=== PATIENT | male | born 1960 | race Caucasian/White ===

== ENCOUNTER 2020-08-29 09:32 | Outpatient (CLI) | payer BC ==
[2020-08-29 12:15] LABS: Hemoglobin 15.1 g/dL (13.5-17.5); Mean Corpuscular HGB CONC 33.4 g/dL (32.0-36.0); Mean Corpuscular Hemoglobin 31.1 pg (27.0-33.0); Mean Corpuscular Volume 93.2 fl (81.2-95.1); Mean Platelet Volume 9.8 fl (7.4-10.4); Platelet Count 185 10x3/uL (150-450); RBC Distribution Width 13.8 % (11.5-14.5); Red Blood Cell (RBC) Count 4.85 10x6/uL (4.32-5.72); White Blood Cell (WBC) Count 8.9 10x3/uL (3.5-10.5)
[2020-08-29 12:41] LABS: Anion Gap 15 mmol/L (10-20); BUN (Urea Nitrogen) 17 mg/dL (8.4-25.7); Calc. Creatinine Clearance 0 mL/min (70-130); Calcium 9.7 mg/dL (7.8-10.44); Carbon Dioxide 27 mmol/L (23-31); Chloride 101 mmol/L (98-107); Glucose 133 mg/dL (80-115); Potassium 4.8 mmol/L (3.5-5.1); Sodium 138 mmol/L (136-145)
[2020-08-29 18:29] LABS: SARS-CoV-2 PCR by NAA Not Detected (NotDetected)
== END 2020-08-29 09:33 | disposition home or self-care (01) ==
LOC: CSHLAB 09:32
PROVIDERS: ATTEND Orthopaedic Surgery
DX: Z01.818 Encounter for other preprocedural examination (principal); Z20.822 Contact with and (suspected) exposure to COVID-19; S86.219A Strain of muscle(s) and tendon(s) of anterior muscle group at lower leg level, unspecified leg, initial encounter
CPT/HCPCS: 80048; 85027; 87635; 93005; 93010; U0003; U0005

== ENCOUNTER 2020-09-01 06:30 | Day surgery (SDC) | payer BC ==
[2020-08-31 14:24] VITALS: BMI 29.8
[2020-09-01] MEDS ORDERED: Lidocaine 1% MPF 2 ML VIAL ONE (08:03)
[2020-09-01] MEDS ORDERED: Bupivacaine PF 0.5% 30 ML VIAL ONE (08:09)
[2020-09-01] MEDS ORDERED: Neomycin-Polymyxin 1 ML AMP ONE (08:09)
[2020-09-01] MEDS ORDERED: EPINEPHrine 1 MG/ML AMP ONE (08:09)
[2020-09-01] MEDS ORDERED: Dexamethasone 4 mg/ml Vial ONE (08:22)
[2020-09-01] MEDS ORDERED: Lidocaine 1% PF 5 ML VIAL ONE (08:22)
[2020-09-01] MEDS ORDERED: Fentanyl 100 MCG/2 ML VIAL ONE (08:22)
[2020-09-01] MEDS ORDERED: PROPOFOL 20 ML ONE (08:22)
[2020-09-01] MEDS ORDERED: Ondansetron PF 4 MG/2 ML Vial ONE (08:22)
[2020-09-01] MEDS ORDERED: PHENYLEPHRINE-NS 100 MCG/ML 10 ML SYRINGE ONE (10:11)
[2020-09-01] MEDS ORDERED: ePHEDrine 50 MG/ML VIAL ONE (10:11)
== END 2020-09-01 12:35 | disposition home or self-care (01) ==
LOC: CSHSDC 06:30
PROVIDERS: ATTEND Orthopaedic Surgery
DX: S86.219A Strain of muscle(s) and tendon(s) of anterior muscle group at lower leg level, unspecified leg, initial encounter (principal)
CPT/HCPCS: C1713; J0171; J1100; J2405; J2704; J3010; J3490; S0020

== ENCOUNTER 2021-02-13 09:39 | Emergency (ER) | payer BC ==
[2021-02-13 10:41] LABS: Bilirubin Neg (Negative); Blood, Urine Negative (Negative); Clarity Clear (Clear); Glucose, Urine (Dipstick) Normal (Negative); Ketone, Urine Negative (Negative); Leukocyte Negative (Negative); Nitrite Negative (Negative); Protein, Urine (Dipstick) 15 mg/dl (Neg-Trace); Specific Gravity, Urine 1.005 (1.002-1.036); Urobilinogen Normal mg/dL (Less than 2)
[2021-02-13 10:43] LABS: %Basophils 0.6 % (0.0-2.0); %Eosinophils 1.9 % (0.0-6.0); %Lymphocytes 14.6 % (18.0-47.0); %Monocytes 4.8 % (0.0-10.0); %Neutrophils 77.7 % (40.0-75.0); Hemoglobin 14.2 g/dL (13.5-17.5); Mean Corpuscular HGB CONC 34.2 g/dL (32.0-36.0); Mean Corpuscular Hemoglobin 31.8 pg (27.0-33.0); Mean Corpuscular Volume 92.8 fl (81.2-95.1); Platelet Count 185 10x3/uL (150-450); RBC Distribution Width 14.6 % (11.5-14.5); Red Blood Cell (RBC) Count 4.47 10x6/uL (4.32-5.72)
[2021-02-13 10:44] LABS: #Basophils 0.1 10x3/uL (0.0-0.2); #Eosinphils 0.2 10x3/uL (0.0-0.5); #Monocytes 0.4 10x3/uL (0.0-1.1); #Neutrophils 6.2 10x3/uL (1.5-8.4)
[2021-02-13] MEDS ORDERED: Ketorolac Tromethamine 30 MG/ML VIAL ONE (10:45)
[2021-02-13 12:11] LABS: ALT (SGPT) 27 U/L (8-55); AST (SGOT) 89 U/L (5-34); Albumin 4.4 g/dL (3.4-4.8); Alkaline Phosphatase 77 U/L (40-110); Anion Gap 13 mmol/L (10-20); BUN (Urea Nitrogen) 18 mg/dL (8.4-25.7); Bilirubin, Total 0.3 mg/dL (0.2-1.2); CK (CPK) 43 U/L (30-200); Calc. Creatinine Clearance 0 mL/min (70-130); Calcium 9.3 mg/dL (7.8-10.44); Carbon Dioxide 27 mmol/L (23-31); Chloride 104 mmol/L (98-107); Globulin 3.9 g/dL (2.4-3.5); Glucose 110 mg/dL (80-115); Potassium 6.3 mmol/L (3.5-5.1); Protein, Total 8.3 g/dL (5.8-8.1); Sodium 138 mmol/L (136-145)
[2021-02-13 13:38] LABS: Anion Gap 12 mmol/L (10-20); BUN (Urea Nitrogen) 16 mg/dL (8.4-25.7); Calc. Creatinine Clearance 0 mL/min (70-130); Carbon Dioxide 27 mmol/L (23-31); Chloride 106 mmol/L (98-107); Glucose 115 mg/dL (80-115); Potassium 4.7 mmol/L (3.5-5.1); Sodium 140 mmol/L (136-145)
== END 2021-02-13 14:36 | disposition home or self-care (01) ==
LOC: CSHERS 09:39
DX: R10.9 Unspecified abdominal pain (principal); M54.50 Low back pain, unspecified; I10 Essential (primary) hypertension; E11.9 Type 2 diabetes mellitus without complications; E78.00 Pure hypercholesterolemia, unspecified; F17.210 Nicotine dependence, cigarettes, uncomplicated; Z86.73 Personal history of transient ischemic attack (TIA), and cerebral infarction without residual deficits; Z79.82 Long term (current) use of aspirin; Z79.899 Other long term (current) drug therapy
CPT/HCPCS: 74176; 80053; 81003; 82550; 85025; 93005; 96374; J1885